=== PATIENT | female | born 1955 | race Caucasian/White ===

== ENCOUNTER 2018-10-20 05:26 | Inpatient (IN) | payer BC ==
[2018-10-11 08:28] LABS: HEMOGLOBIN 14.1 gm/dL (12.0-15.0); MCH 29.5 pg (26.0-34.0); MCHC 35.3 g/dL (28.0-37.0); MCV 83.8 fL (80.0-100.0); RBC 4.78 mil/uL (4.20-5.00); RDW 13.4 % (10.5-14.5); WBC 9.2 thou/uL (4.0-11.0)
[2018-10-11 08:30] LABS: URINE BILIRUBIN NEGATIVE (Negative); URINE BLOOD NEGATIVE (Negative); URINE CLARITY CLEAR; URINE COLOR YELLOW; URINE GLUCOSE-RANDOM* TRACE (Negative); URINE KETONES NEGATIVE (Negative); URINE LEUKOCYTES-REFLEX NEGATIVE (Negative); URINE NITRITE-REFLEX NEGATIVE (Negative); URINE PROTEIN (DIPSTICK) NEGATIVE (Negative); URINE UROBILINOGEN 0.2 E.U./dl (0.2-1.0)
[2018-10-11 08:44] LABS: CALCIUM 10.4 mg/dL (8.5-10.1); CREATININE 0.8 mg/dL (0.6-1.0); POTASSIUM 4.1 mmol/L (3.5-5.1); PROTIME 9.6 Seconds (9.3-11.4)
[~2018-10-20] VITALS: Ht 157.5 cm; Wt 81.6 kg
--- NOTE | ~2018-10-20 | O ---
[facility] [place] [address] OPERATIVE REPORT Name: YUE TREVIZO Room #: 423-1 ADM IN M.R.#: [id number] Admission: 10/20/18 Attend Phys: Inocencio Holt Discharge: Date of : 55 Report #: [id number] THIS REPORT FOR: //name// CC: [facility] DATE OF SERVICE: 10/20/2018 PREOPERATIVE DIAGNOSES: Left shoulder pain, avascular necrosis of humeral head. 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 PROCEDURE PERFORMED: Left shoulder humeral head replacement, open biceps tenodesis. SURGEON: Inocencio Mendieta MD. [employer] SUPERVISOR: Elsa Crawford PA-C. ANESTHESIA: General with preoperative ultrasound-guided interscalene block. FLUIDS: Approximately 600 mL crystalloid. ESTIMATED BLOOD LOSS: Less than 50 mL. IMPLANTS UTILIZED: [employer] Unite stem size 12 proximal body and stem with 44 x 18 eccentric humeral head. DESCRIPTION OF PROCEDURE: After proper identification of the patient and operative site in preoperative holding area, the operative site was signed by myself. Prophylactic antibiotics given. The patient elected to receive an interscalene block after reviewing the risks, benefits, alternatives and potential complications with Anesthesia. After a satisfactory block, the patient was brought back to the operative suite. After induction of satisfactory general endotracheal anesthesia, she was carefully positioned in the beach chair with head of bed elevated approximately 40 degrees. Left shoulder was sterilely prepped and draped in usual manner. Final skin draping was with Ioban. A [employer] limb positioning system was utilized throughout the entire procedure to aid in positioning of the limb. Skin was incised sharply through an anterior deltopectoral approach. Full thickness skin flaps were developed. Cephalic vein was identified and retracted laterally. Subdeltoid space was opened. Some mild bursal thickening was appreciated. Tenosynovitis about the long head of biceps tendon was noted. This was opened. Fluid was evacuated with suction. Some partial thickness tearing was noted as this extended into the bicipital groove. Biceps tendon was tenodesed to the [facility] [address] [place] [address] OPERATIVE REPORT Name: JOSELINEYUE A Room #: 423-1 ADM IN M.R.#: [id number] Admission: 10/20/18 Attend Phys: Inocencio Holt Discharge: Date of : 55 Report #: [id number] undersurface of the upper border of the pectoralis major tendon. Free end of the tendon was then followed. Bicipital groove and the rotator interval was then opened. Anterior circumflex vessels were identified, ligated and cauterized. A lesser tuberosity osteotomy was performed. The subscapularis was released. Portion of the anterior capsule was carefully released as well and the humeral head was delivered. At this point, inaja version measured approximately 30 degrees of retroversion. Humeral head osteotomy was performed matching the inaja version at 135 degree angles using cutting guide. This was removed. Humeral head demonstrated softening of the chondral surface and subchondral bone consistent with her preoperative imaging studies. Chondral surface of the glenoid appeared to be a fairly well preserved with some mild pitting noted inferiorly, but the patient wished to preserve the glenoid if at all possible and it seemed reasonable to do so as there was not advanced degenerative changes here. Any remaining small humeral head osteophytes were carefully removed. The rotator cuff was intact. Stem was dilated up to a size 12 stem. The [employer] cutter broach was utilized as well as the trial implant was placed. A 44 x 18 eccentric head provided the best overall fit and recreation of the proximal humeral anatomy. There was excellent stability. Trial implants were removed. Drill holes were placed at the anterior cortex of the humerus where 4 #2 FiberWires were passed for the subscapularis repair. Global Unite broach osteotome was inserted. The stem was assembled on the back table, impacted into position with the inferior 2 sutures wrapped around the stem. Trial head was again placed in it was the same size. The shoulder was reduced, again excellent stability. Trial head was removed. Joint was thoroughly irrigated with normal saline. The humeral head was then implanted and impacted into position. Shoulder was reduced. The anterior capsule had been divided for a portion of the approach, but not excised. The lesser tuberosity osteotomy was repaired with a modified [place] technique and then rotator interval was closed with #2 FiberWire. Joint was stable. The patient easily externally rotated 45 degrees. Wound was thoroughly irrigated with normal saline with antibiotic irrigant. One gram vancomycin powder was utilized, half of it deep and half of it more superficial. Deltopectoral was closed with #1 Vicryl, 2-0 Vicryl, subcutaneous tissues followed by running 4-0 Monocryl and Dermabond. Sterile dressing was applied. She was awakened and transferred to the recovery room in stable condition. Qualified operator assistant i cementing utilized throughout the entire procedure to aid in patient limb positioning, visualization and retraction of soft tissues, instrument passage, closure and sling and dressing application. <ELECTRONICALLY SIGNED> By: Inocencio Mendieta MD 10/20/18 [id number] Inocencio Mendieta MD /nt
[~2018-10-20 05:26] MED LIST: ATIVAN0.5 MG PO; BENADRYL25 MG PO; IBUPROFEN 400400 M2 PO; LIPITOR 20 MG T20 M1 PO; SYNTHROID137 MC1 PO; ZESTORETIC 20-1 EAC3 PO
[2018-10-20 07:55] VITALS: BP 142/51
[2018-10-20 13:05] VITALS: BP 145/74
[2018-10-20 19:40] VITALS: BP 111/50
[2018-10-21 04:33] VITALS: BP 111/58
[2018-10-21 05:05] LABS: HEMATOCRIT 33.8 % (37.0-47.0); HEMOGLOBIN 11.6 gm/dL (12.0-15.0)
[2018-10-21 05:12] LABS: POTASSIUM 4.3 mmol/L (3.5-5.1)
[2018-10-21 14:06] VITALS: BP 111/58
== END 2018-10-21 15:21 | disposition home or self-care (01) | DRG 483 ==
LOC: TBA 05:26 → OR 05:26 → TBA 05:27 → OR 05:33 → 4E 12:07 → OR 12:07 → ENTRNSPT 10-21 15:13 → EDTRNSPTSTS 10-21 15:21 → 4E 10-21 15:21
PROVIDERS: Orthopaedic Surgery Sports Medicine; Physician Assistant Surgical
DX: M87.812 Other osteonecrosis, left shoulder (principal); M75.21 Bicipital tendinitis, right shoulder
CPT/HCPCS: 10783; 50010; 50101; 50172; 50386; 50417; 50697; 50733; 50935; 51320; 52001; 52138; 52282; 53000; 53078; 54118; 55430; 56524; 56525; 56526; 56530; 57095; 57103; 62110; 62900; 64039; 70005